=== PATIENT | female | born 1995 | race Two or more races ===

== ENCOUNTER 2017-07-09 11:48 | Emergency (ER) | payer BC, OTHER ==
[2017-07-09] MEDS: ONDANSETRON 4 MG INJ IV (14:04)
[2017-07-09] MEDS: SOD CHLORIDE 0.9% 1,000 ML IV (14:04)
[2017-07-09] MEDS: FAMOTIDINE 20 MG INJ IV (14:04)
== END 2017-07-09 16:12 | disposition home or self-care (01) ==
LOC: FTE 11:48
DX: R10.84 Generalized abdominal pain (principal); R11.2 Nausea with vomiting, unspecified; R19.7 Diarrhea, unspecified
CPT/HCPCS: 96374; 96375; 99284-25